=== PATIENT | male | born 2000 | race Hispanic/Latino ===

== ENCOUNTER 2024-04-23 01:22 | Inpatient (IN) | payer OTHER ==
[2024-04-23] VITALS (9 sets, daily range): BP systolic 120–131; BP diastolic 70–76; PULSE 61–94; RESP 15–20; TEMP 97.5–98.2; O2SAT 99–100
[~2024-04-23] VITALS: Ht 175.3 cm; Wt 104.3 kg
[2024-04-23] MEDS: LEVOFLOXACIN 500MG/D5W 100ML 100 ML IV ONE (02:13)
[2024-04-23] MEDS: SODIUM CHLORIDE 0.9% 1000ML 1,000 ML IV STA (02:14)
[2024-04-23] MEDS: KETOROLAC TROMETHAMINE 30 MG/ML VIAL IV ONE (02:14)
[2024-04-23] MEDS ORDERED: IOPAMIDOL 370 MG/ML 100 ML INFUS..BTL INJ ONE (02:24)
[2024-04-23] MEDS ORDERED: LEVOFLOXACIN 500MG/D5W 100ML IV SCH (02:30)
[2024-04-23] MEDS ORDERED: ONDANSETRON HCL INJ 2MG/ML 2ML 2 MG/ML VIAL IV PRN (02:30)
[2024-04-23] MEDS ORDERED: DIPHENHYDRAMINE HCL INJ 50 MG/ML VIAL IV PRN (02:30)
[2024-04-23] MEDS ORDERED: SODIUM CHLORIDE 0.9% 1000ML 1,000 ML IV SCH (02:30)
[2024-04-23] MEDS: SODIUM CHLORIDE 0.9% 1000ML 1,000 ML IV SCH (04:56)
[2024-04-23] MEDS: METRONIDAZOLE 500MG/NS 100ML IV SCH (05:01)
[2024-04-23] MEDS: FAMOTIDINE 20 MG/2 ML VIAL IV SCH (08:34)
[2024-04-23] MEDS: ACETAMINOPHEN 325 MG TAB PO PRN (16:59)
[2024-04-23] MEDS: LEVOFLOXACIN 500MG/D5W 100ML 100 ML IV SCH (20:26)
[2024-04-23] MEDS: BISACODYL 10 MG SUPP PR ONE (22:10)
[2024-04-23] MEDS: MAGNESIUM HYDROXIDE 30 ML UDC PO PRN (22:14)
[2024-04-24] VITALS (9 sets, daily range): BP systolic 118–132; BP diastolic 64–78; PULSE 66–94; RESP 17–19; TEMP 97.5–98.8; O2SAT 99–100
[2024-04-24 08:09] LABS: BASOPHILS # (AUTO) 0.1 (0.0-0.1); BASOPHILS % 0.7 % (0.0-1.0); EOSINOPHILS # (AUTO) 0.6 (0.0-0.4); EOSINOPHILS % 8.7 % (0.0-6.0); HEMATOCRIT 39.9 % (38.2-49.6); HEMOGLOBIN 13.9 g/dL (14.0-18.0); LYMPHOCYTES # (AUTO) 2.1 (1.0-3.2); LYMPHOCYTES % 30.6 % (18.0-39.1); MEAN CORPUSCULAR HGB CONC 34.8 g/dL (31-35); MONOCYTES # (AUTO) 0.6 (0.2-0.8); MONOCYTES % 8.6 % (4.4-11.3); NEUTROPHILS # (AUTO) 3.5 (2.1-6.9); NEUTROPHILS % 51.3 % (38.7-80.0); PLATELET COUNT 315 x10e3/uL (140-360); RED BLOOD COUNT 4.64 x10e6/uL (4.3-5.7); RED CELL DISTRIBUTION WIDTH 12.4 % (11.7-14.4); WHITE BLOOD COUNT 6.77 x10e3/uL (4.8-10.8)
[2024-04-24 08:31] LABS: CALCIUM 9.2 mg/dL (8.4-10.2); CREATININE, SERUM 0.86 mg/dL (0.72-1.25)
[2024-04-24] MEDS: Morphine 2mg Syringe 2 MG/ML SYR IV PRN (20:36)
[2024-04-25] VITALS (8 sets, daily range): BP systolic 119–127; BP diastolic 69–79; PULSE 59–94; RESP 17–18; TEMP 98.1–99.4; O2SAT 98–100
[2024-04-25] MEDS ORDERED: MIDAZOLAM HCL 2 MG/2 ML VIAL ONE (13:46)
[2024-04-25] MEDS ORDERED: PROPOFOL IV EMULSION 10 MG/ML 20 ML VIAL ONE ×2 (13:56→14:01)
[2024-04-25] MEDS ORDERED: LIDOCAINE HCL 2% LOCAL INJ 5 ML SDV VIAL INJ ONE (13:56)
[2024-04-25] MEDS ORDERED: FENTANYL CITRATE/PF 100MCG/2 ML INJ ONE (13:56)
[2024-04-25] MEDS ORDERED: DEXAMETHASONE SOD PHOS INJ 4 MG/ML SDV ONE (14:13)
[2024-04-25] MEDS ORDERED: HYDROCODONE/APAP 5MG-325MG TAB PO PRN (14:30)
[2024-04-25] MEDS ORDERED: ONDANSETRON HCL INJ 2MG/ML 2ML 2 MG/ML VIAL IV PRN (14:30)
[2024-04-26] VITALS (8 sets, daily range): BP systolic 106–134; BP diastolic 57–80; PULSE 59–100; RESP 18–21; TEMP 97.5–98.9; O2SAT 99–100
[2024-04-26 09:18] LABS: BASOPHILS % 0.2 % (0.0-1.0); HEMATOCRIT 39.7 % (38.2-49.6); HEMOGLOBIN 14.2 g/dL (14.0-18.0); LYMPHOCYTES # (AUTO) 1.3 (1.0-3.2); LYMPHOCYTES % 13.1 % (18.0-39.1); MEAN CORPUSCULAR HEMOGLOBIN 30.4 pg (28-32); MEAN CORPUSCULAR HGB CONC 35.8 g/dL (31-35); MONOCYTES # (AUTO) 0.6 (0.2-0.8); MONOCYTES % 6.4 % (4.4-11.3); NEUTROPHILS % 79.8 % (38.7-80.0); PLATELET COUNT 355 x10e3/uL (140-360); RED BLOOD COUNT 4.67 x10e6/uL (4.3-5.7); RED CELL DISTRIBUTION WIDTH 12.4 % (11.7-14.4); WHITE BLOOD COUNT 10.02 x10e3/uL (4.8-10.8)
[2024-04-26 10:09] LABS: ANION GAP 15.7 mmol/L (8-16); CALCIUM 9.5 mg/dL (8.4-10.2); CREATININE, SERUM 0.82 mg/dL (0.72-1.25); POTASSIUM 3.7 mmol/L (3.5-5.1)
[2024-04-27] VITALS: BP 109/71; PULSE 68; RESP 18; TEMP 98.9; O2SAT 98
[2024-04-27 04:00] VITALS: BP 106/61; PULSE 85; RESP 18; TEMP 98.9; O2SAT 100
[2024-04-27 07:55] VITALS: BP 103/55; PULSE 63; RESP 17; TEMP 97.6; O2SAT 100
[2024-04-27 08:02] VITALS: BP 103/55; PULSE 63; RESP 17; TEMP 97.6; O2SAT 100
[2024-04-27 11:35] VITALS: BP 116/67; PULSE 64; RESP 21; TEMP 97.7; O2SAT 100
== END 2024-04-27 14:20 | disposition home or self-care (01) | DRG 395 ==
LOC: FSED 01:26 → ERHOLD 02:26 → MED/SURG3 04:32
PROVIDERS: ADMIT Internal Medicine; ATTEND Internal Medicine
PROC: 0Y910ZZ Drainage of Left Buttock, Open Approach (ICD-10-PCS; principal; 2024-04-25 13:58)
DX: K61.1 Rectal abscess (principal); B95.2 Enterococcus as the cause of diseases classified elsewhere; J45.909 Unspecified asthma, uncomplicated; E66.9 Obesity, unspecified; Z68.34 Body mass index [BMI] 34.0-34.9, adult; Z98.890 Other specified postprocedural states
CPT/HCPCS: 36415; 74177; 80048; 80053; 85025; 87071; 87075; 87186; 87205; 96374; 99252; 99284; J1100; J1885; J1956; J2003; J2250; J2270; J2405; J7030; Q9967

== ENCOUNTER 2024-05-30 22:01 | Emergency (ER) | payer OTHER ==
[~2024-05-30] VITALS: Ht 175.3 cm; Wt 104.3 kg
[2024-05-30 22:12] VITALS: PULSE 72; RESP 16; TEMP 98.3
[2024-05-30 22:36] LABS: BASOPHILS # (AUTO) 0.1 (0.0-0.1); EOSINOPHILS # (AUTO) 1.6 (0.0-0.4); EOSINOPHILS % 14.7 % (0.0-6.0); HEMATOCRIT 44.4 % (38.2-49.6); HEMOGLOBIN 15.5 g/dL (14.0-18.0); LYMPHOCYTES # (AUTO) 3.6 (1.0-3.2); LYMPHOCYTES % 33.3 % (18.0-39.1); MEAN CORPUSCULAR HGB CONC 34.9 g/dL (31-35); MONOCYTES # (AUTO) 0.7 (0.2-0.8); MONOCYTES % 6.2 % (4.4-11.3); NEUTROPHILS # (AUTO) 4.8 (2.1-6.9); NEUTROPHILS % 44.5 % (38.7-80.0); PLATELET COUNT 354 x10e3/uL (140-360); RED BLOOD COUNT 5.16 x10e6/uL (4.3-5.7); RED CELL DISTRIBUTION WIDTH 12.4 % (11.7-14.4); WHITE BLOOD COUNT 10.87 x10e3/uL (4.8-10.8)
[2024-05-30 22:59] LABS: ALBUMIN 4.9 g/dL (3.5-5.0); ALBUMIN/GLOBULIN RATIO 1.6 (0.8-2.0); ANION GAP 15.8 mmol/L (8-16); BILIRUBIN,TOTAL 0.4 mg/dL (0.2-1.2); CALCIUM 9.4 mg/dL (8.4-10.2); CREATININE, SERUM 0.96 mg/dL (0.72-1.25); POTASSIUM 3.8 mmol/L (3.5-5.1)
[2024-05-31] MEDS ORDERED: IOPAMIDOL 370 MG/ML 100 ML INFUS..BTL INJ ONE (00:09)
[2024-05-31] MEDS ORDERED: CIPRO500 MG PO (00:22)
[2024-05-31] MEDS ORDERED: METRONIDAZOLE500 MG PO (00:22)
[2024-05-31 00:58] VITALS: BP 127/84; PULSE 67; RESP 18; TEMP 98.7; O2SAT 98
== END 2024-05-31 01:05 | disposition home or self-care (01) ==
LOC: ER 22:04
DX: K61.0 Anal abscess (principal); K76.0 Fatty (change of) liver, not elsewhere classified; J45.909 Unspecified asthma, uncomplicated
CPT/HCPCS: 36415; 74177; 80053; 85025; 99284; Q9967